=== PATIENT | female | born 1990 | race Caucasian/White ===

== ENCOUNTER 2018-05-05 12:12 | Emergency (ER) | END 2018-05-05 16:07 | disposition home or self-care (01) ==

== ENCOUNTER 2018-05-13 21:31 | Emergency (ER) | END 2018-05-14 02:05 | disposition home or self-care (01) ==

== ENCOUNTER 2018-05-18 19:58 | Emergency (ER) | END 2018-05-19 00:46 | disposition home or self-care (01) ==

== ENCOUNTER 2018-05-21 14:17 | Day surgery (SDC) | END 2018-05-27 12:46 | disposition home or self-care (01) ==